=== PATIENT | female | born 1990 | race Caucasian/White ===

== ENCOUNTER 2018-01-19 07:21 | Inpatient (IN) | payer MEDICAID ==
[2018-01-19] MEDS ORDERED: Ondansetron 4 MG/2 ML SDV IV PRN (08:43)
[2018-01-19] MEDS ORDERED: Misoprostol 400 MCG (4 X 100 MCG TAB) RECTAL PRN (08:43)
[2018-01-19] MEDS ORDERED: Tranexamic Acid 1,000 MG in Sodium Chloride 0.9% 100 ML IV PRN (08:43)
[2018-01-19] MEDS ORDERED: Acetaminophen 325 MG Tab PO PRN (08:43)
[2018-01-19] MEDS ORDERED: Methylergonovine 0.2 MG/1 ML Amp IM PRN (08:43)
[2018-01-19] MEDS ORDERED: Lactated Ringers 500 ML IV ONE (08:43)
[2018-01-19] MEDS ORDERED: Lidocaine 1% 30 ML SDV INJECT PRN (08:43)
[2018-01-19] MEDS ORDERED: Carboprost Tromethamine 250 MCG/1 ML Amp IM PRN (08:43)
[2018-01-19] MEDS ORDERED: hydrOXYzine HCl 25 MG Tab PO ONE ×2 (08:48→15:42)
[2018-01-19] MEDS ORDERED: ePHEDrine 50 MG/ML SDV IVPUSH ONE (09:00)
[2018-01-19] MEDS ORDERED: Nalbuphine 10 MG/1 ML Vial IM ONE ×2 (09:53→14:48)
[2018-01-19] MEDS: Lactated Ringers 1,000 ML IV SCH ×4 (13:12→22:00)
[2018-01-19] MEDS: Oxytocin/Normal Saline 30 UNIT/500 ML BAG IV SCH (14:19)
--- NOTE | 2018-01-19 15:12 | HP ---
CHIEF COMPLAINT: Increasing severity and frequency of contractions. HISTORY OF PRESENT ILLNESS: This is a 27-year-old, 1, para 0, currently at 40 weeks 3 days' gestation based on an 18-week ultrasound, who presents to Labor and Delivery reporting regular contractions, increasing in severity. Per patient's mother, patient noted a fluid discharge around 4:30 am this morning. She was brought to the hospital by her mother at 0700 am with increasing severity of contractions. She reports that the pain is in her back and lower stomach, but back hurts more severe than lower stomach. She has had no leakage of fluid or vaginal bleeding. Denies right upper quadrant pain and denies headaches, blurry vision. She has noticed increased swelling in her hands and feet. She denies any recent infections, fevers, or recent drug use. HISTORY: The patient was incarcerated during , had care through the [facility] system. care was transferred to Dr. Hobbs at 35 weeks and 2 days. The mother's blood type O positive. GBS negative, Rubella immune, antibody screen negative. Hepatitis C positive, genotype 1a. HIV nonreactive, Treponema antibodies for syphilis negative. Tdap given 10/25/2017. Influenza vaccine 07/2017. Passed 1 hour GTT. Mother has a history of benzodiazepine, heroin, and tobacco abuse. UDS positive for Cannabinoids. She denies alcohol use during and admits to a few cigarettes per day throughout . Denies other drug use during . PAST MEDICAL HISTORY: 1. Hepatitis C positive. 2. History of substance abuse, heroin and benzodiazepines. 3. Suboxone treated is noted in medical chart. Patient denies that she is taking Suboxone. PAST SURGICAL HISTORY: The patient denies past surgical history. FAMILY HISTORY: Mother is living with no known medical conditions. Father living with no known medical conditions. Maternal grandfather and grandmother . Paternal grandfather and grandmother with no known medical conditions. The patient denies family history of defects, clotting disorders, anesthesia problems, seizures, cystic fibrosis, and bleeding problems. SOCIAL HISTORY: The patient currently living in [place], [place] with her mother who is her source of transportation. She does not have a job in [place]. The patient recently moved to [place] from [place]. The patient has been incarcerated during . CURRENT MEDICATIONS: vitamin. EXPOSURE MEDICATIONS: Suboxone. ALLERGIES: No known allergies. REVIEW OF SYSTEMS: No headaches, blurry vision, chest pain, shortness of breath, fever, or chills. No nausea, vomiting, diarrhea, or constipation. The patient has some mild swelling. OBJECTIVE: Vital Signs: Temperature 98 Fahrenheit, pulse of 91, blood pressure 150/80, respirations 16 on room air. HEENT: Normocephalic and atraumatic. Mucosal membranes are moist. Neck: Supple. No adenopathy. Heart: Regular. S1 and S2 without murmur. Lungs: Clear to auscultation bilaterally. Abdomen: Gravid, nontender. Baseline heart rate 140, with no accelerations. [place] picking up contractions approximately every 1 to 3 minutes. Cervix upon arrival was 1 cm, 90% effaced with bag of water intact. LABORATORY DATA: Hemoglobin of 12.3, platelets of 262, white blood cells of 14.9. AST 32 and ALT of 24. Urine protein 30. Urine bacteria moderate, many urine epithelial cells. Urine drug screen negative for all drugs tested including opioids, barbiturates, and benzodiazepines. Urine Protein:creatinine ratio 0.58 Wet prep negative for yeast, trichomonas. Few clue cells, rare WBC ASSESSMENT: 1. This 27-year-old with 40 weeks 3 days intrauterine based on 19 week ultrasound. 2. 1, para 0. 3. Blood type O positive, Group B streptococcus negative, Rubella immune 4. high-risk in 3rd trimester with incarceration during 5. Hepatitis C positive. 4. Pre-eclampsia, hypertension with Protein:Creatine ratio of 0.58. PLAN: At this time, the patient is receiving Pitocin to augment the labor and at last cervical exam was 1 to 1.5 cm dilated. Planning intrathecal at 4-5 cm dilation. Anticipating vaginal delivery. The patient understands that things may change or arise that she may need alternative delivery such as section. Questions have been answered. History, physical, assessment and plant per Dr. Hobbs. This note is being scribed for Dr. Hobbs. [facility] /[id number] [facility]
[2018-01-19] MEDS ORDERED: fentaNYL 100 MCG/2 ML SDV ONE ×2 (16:58→21:05)
[2018-01-19] MEDS ORDERED: Bupivacaine 0.75%/D5W 2 ML Amp ONE (16:58)
[2018-01-19] MEDS ORDERED: EPINEPHrine 1 MG/ML SDV ONE ×2 (16:59→21:06)
--- NOTE | 2018-01-19 17:52 | PCM.PRNOTE ---
- Free Text/Narrative Note: Requested to provide analgesia to full term patient in severe pain. Upon entering the room, patient is supine in bed complaining of severe abdominal/ pelvic pain and discomfort. Procedure was discussed with patient including adverse outcomes and expectations. Pt consented to analgesia, SAB/IT. Pt placed into a sitting position. Landmarks for SAB/IT were identified and marked. Hands were washed and appropriate PPE was applied. Back was prepped with betadine x3. A sterile, transparent, fenestrated drape was applied. Excess betadine was removed. Using 3 mL of a 1% lidocaine solution, a skin wheel was placed at the L3/L4 interspace. A 24 ga (4 inch) Pencan spinal needle was inserted until positive for CSF. Negative for heme or paresthesias. Injected fentanyl 25 mcg, sufentanil 15 mcg, and 9.75 mg of a 0.75% bupivacaine solution with an epi wash. Pt was placed left lateral position for approximately 20 minutes. There were zero complications or adverse outcomes. Will continue to monitor. Procedure Date & Time: 01/19/18 [id number] (30 min)
[2018-01-19] MEDS ORDERED: Gentamicin 40 MG/ML 2 ML Vial IV SCH ×2 (21:15→21:30)
[2018-01-19] MEDS: Clindamycin Phosphate 900 MG in Sodium Chloride 0.9% 100 ML IV SCH (21:57)
--- NOTE | 2018-01-19 21:57 | PCM.PRNOTE ---
- Free Text/Narrative Note: Requested to provide analgesia to full term patient in severe pain. Upon entering the room, patient is kneeling in bed complaining of severe abdominal/ pelvic pain and discomfort. Procedure was discussed with patient including adverse outcomes and expectations. Pt consented to analgesia, SAB/IT. Pt placed into a sitting position. Landmarks for SAB/IT were identified and marked. Hands were washed and appropriate PPE was applied. Back was prepped with betadine x3. A sterile, transparent, fenestrated drape was applied. Excess betadine was removed. Using 3 mL of a 1% lidocaine solution, a skin wheel was placed at the L3/L4 interspace. A 24 ga (4 inch) Pencan spinal needle was inserted until positive for CSF. Negative for heme or paresthesias. Injected fentanyl 25 mcg, sufentanil 15 mcg, and 9.75 mg of a 0.75% bupivacaine solution with an epi wash. Pt was placed left lateral position for approximately 20 minutes. There were zero complications or adverse outcomes. Will continue to monitor. Procedure Date & Time: 01/19/[id number] (30 min)
[2018-01-20] MEDS ORDERED: Citric Acid/Sodium Citrate Solution 30 ML Cup PO ONE (00:47)
[2018-01-20] MEDS ORDERED: Oxytocin/Normal Saline 60 UNIT/1,000 ML BAG ONE (00:53)
[2018-01-20] MEDS ORDERED: Citric Acid/Sodium Citrate Solution 30 ML Cup ONE (00:57)
[2018-01-20] MEDS: Oxytocin/Normal Saline 30 UNIT/500 ML BAG IV SCH (02:15)
[2018-01-20] MEDS ORDERED: Methylergonovine 0.2 MG/1 ML Amp IM PRN (02:40)
[2018-01-20] MEDS ORDERED: ePHEDrine 50 MG/ML SDV IVPUSH PRN (02:40)
[2018-01-20] MEDS ORDERED: diphenhydrAMINE 50 MG/ML SDV IVPUSH PRN (02:40)
[2018-01-20] MEDS ORDERED: Naloxone 2 MG/2 ML Syringe IVPUSH PRN (02:40)
[2018-01-20] MEDS ORDERED: Acetaminophen/oxyCODONE 325-5 MG Tab PO PRN (02:40)
[2018-01-20] MEDS ORDERED: Lactated Ringers 1,000 ML IV SCH (02:45)
[2018-01-20] MEDS ORDERED: Ketorolac 30 MG/ML SDV IVPUSH SCH (03:00)
--- NOTE | 2018-01-20 03:01 | PCM.PRNOTE ---
- Free Text/Narrative Note: Section Operative Report Date of Surgery: 01/20/2018 Surgeon: Taina Hobbs MD Spindle Maker: MD Opal Haynes MS3 Pre-Operative Diagnosis: Failure to progress in 2nd stage Maternal chorioamnionitis Post-Operative Diagnosis: Same Procedure Performed: Primary low transverse section Anesthesia: General EBL: 700 mL IVF: 1200 mL Drains: Romo catheter with 200 mL of urine output Specimens: None Complications: None apparent Findings: Normal uterus, tubes, and ovaries. Indication and Consent: After pushing for nearly 2 hours, no significant head descent was noted. Patient also developed chorioamnionitis. section was recommended to the patient for wellbeing. The patient understood that the risks of section include, but are not limited to, visceral or vascular injury, infection, blood loss and need for blood transfusion, prolonged hospitalization , and reoperation. The patient stated understanding and desired to proceed. All questions were answered. Procedure in Detail: The patient was taken to the operating room. Spinal anesthesia was administered. Romo catheter and pneumoboots were placed. She was then prepped and draped in routine fashion in dorsal supine position with a left rojo tilt. Patient was receiving Clindamycin and Gentamicin for chorioamnionitis. A Pfannenstiel skin incision was made with a scalpel and carried down to the fascia. The fascia was incised and extended laterally. The rectus musculature was in the midline down to the level of the pubic symphysis. The peritoneum was found to be free of adherent bowel or bladder tissue and entered bluntly. The peritoneal opening was then extended superiorly and inferiorly to the bladder reflection with good visualization of the bladder. The Valentin retractor was placed. Brief intraabdominal survey revealed scant, clear peritoneal fluid and thinned-out lower uterine segment. The lower uterine segment was incised with a scalpel. The amniotic sac was ruptured with an Allis clamp and foul-smelling, brown, meconium-stained fluid was noted. The uterine incision was extended bluntly with lateral and upward traction. The fetus was in vertex position. The head was elevated out of the maternal pelvis with special attention paid to avoid using the uterine incision as a fulcrum. Gentle fundal pressure was applied once the head was brought into the incision. The infant was delivered with minimal difficulty. Bulb suctioning of the infant's nose and mouth was not performed on the operative field. The cord was clamped and cut in standard fashion, and the infant was handed over to the awaiting nursery staff. IV oxytocin was initiated to facilitate uterine contractions. The placenta was delivered intact with manual message of the uterine fundus along with gentle cord traction. The inside of the uterus was gently wiped with a lap sponge to assure complete removal of remaining products of conception. The uterine incision was closed with 0 -Vicryl suture in a running locked fashion. The incision was inspected and hemostasis achieved. The ovaries and tubes were visualized and found to be normal. The uterus, tubes, and ovaries were returned to the abdominal cavity. The blood clots and fluid were wiped out of the abdomen and pelvis with moist laparotomy sponges. The uterine incision was re-inspected along with all other incised surfaces and good hemostasis was confirmed. The Valentin retractor was removed. The peritoneus was then closed using 2-0 Vicyrl. The fascia was then closed with 2-0 looped PDS suture with care not to include any underlying abdominal contents. The skin was closed with arnaldo. Dressing was applied. Sponge and instrument counts were reported as correct times two. Patient tolerated procedure well and was taken to PACU in stable condition. Taina Hobbs MD
--- NOTE | 2018-01-20 03:09 | PCM.DEL ---
L & D Note - General Info Date of Service: 01/20/18 Mother's Due Date: 01/16/18 - Delivery Note Labor: Spontaneous Delivery Outcome: Livebirth Infant Delivery Method: Primary Presentation: Vertex Nuchal Cord: None Anesthesia Type: Spinal, Intrathecal Amniotic Fluid Description: Foul smelling Placenta: Manual Removal, Meconium Stained Cord: 3 Vessels Estimated Blood Loss: 700 [place]: Suctioned, Bulb Syringe, Stimulated, Warmed, [place] Used, Warmer Used Provider: Taina Hobbs Score 1 min: 8 Score 5 min: 8 Delivery Comments (Free Text/Narrative):: Please see procedure note for details. - General Info Date of Service: 01/20/18 - Patient Data Vitals - Most Recent: Last Vital Signs Temp 36.9 C 01/20/18 02:15 Pulse 84 01/20/18 02:55 Resp 19 01/20/18 02:55 BP 141/78 H 01/20/18 02:55 Pulse Ox 98 01/20/18 02:55 Weight - Most Recent: 97.069 kg Lab Results Last 24 Hours: Laboratory Results - last 24 hr 01/19/18 01/19/18 01/19/18 Range/Units 07:21 07:21 07:21 WBC (5.0-10.0) 10^3/uL RBC (4.2-5.4) 10^6/uL Hgb (12.0-16.0) g/dL Hct (37.0-47.0) % MCV (80-100) fL MCH (27.0-34.0) pg MCHC (33.0-35.0) g/dL Plt Count (150-450) 10^3/uL BUN (7-18) mg/dL Creatinine (0.6-1.3) mg/dL Est Cr Clr Drug Dosing mL/min Estimated GFR (MDRD) Uric Acid (2.6-7.2) mg/dL AST (10-42) IU/L ALT (10-60) IU/L Lactate Dehydrogenase (91-180) IU/L Urine Color Yellow (YELLOW) Urine Appearance Slightly cloudy (CLEAR) Urine pH 7.0 (5.0-9.0) Ur Specific [place] 1.020 (1.005-1.030) Urine Protein 30 H (NEGATIVE) Urine Glucose (UA) Negative (NEGATIVE) Urine Ketones Negative (NEGATIVE) Urine Occult Blood Trace-lysed H (NEGATIVE) Urine Nitrite Negative (NEGATIVE) Urine Bilirubin Negative (NEGATIVE) Urine Urobilinogen 0.2 (0.2-1.0) mg/dL Ur Leukocyte Esterase Trace H (NEGATIVE) Urine RBC 5-10 H /HPF Urine WBC 10-20 H (0-5/HPF) /HPF Ur Epithelial Cells Many H /HPF Amorphous Sediment Few (0/HPF) /HPF Urine Bacteria Moderate H (0-FEW/HPF) /HPF Urine Mucus Few H /LPF Ur Random Creatinine 55 mg/dL U Random Total Protein 32 H (0.00-9.9) mg/dL Protein/Creatinin Ratio 0.58 Urine Opiates Screen Negative (NEGATIVE) Ur Oxycodone Screen Negative (NEGATIVE) Urine Methadone Screen Negative (NEGATIVE) Ur Barbiturates Screen Negative (NEGATIVE) U Tricyclic Antidepress Negative (NEGATIVE) Ur Phencyclidine Scrn Negative (NEGATIVE) Ur Amphetamine Screen Negative (NEGATIVE) U Methamphetamines Scrn Negative (NEGATIVE) Urine MDMA Screen Negative (NEGATIVE) U Benzodiazepines Scrn Negative (NEGATIVE) Urine Cocaine Screen Negative (NEGATIVE) U Marijuana (THC) Screen Negative (NEGATIVE) Blood Type Gel Antibody Screen 01/19/18 01/19/18 01/19/18 Range/Units 07:30 07:30 07:30 WBC 14.9 H (5.0-10.0) 10^3/uL RBC 3.73 L (4.2-5.4) 10^6/uL Hgb 12.3 (12.0-16.0) g/dL Hct 35.9 L (37.0-47.0) % MCV 96.2 (80-100) fL MCH 33.0 (27.0-34.0) pg MCHC 34.3 (33.0-35.0) g/dL Plt Count 262 (150-450) 10^3/uL BUN 14 (7-18) mg/dL Creatinine (0.6-1.3) mg/dL Est Cr Clr Drug Dosing mL/min Estimated GFR (MDRD) Uric Acid 5.1 (2.6-7.2) mg/dL AST 32 (10-42) IU/L ALT 24 (10-60) IU/L Lactate Dehydrogenase 157 (91-180) IU/L Urine Color (YELLOW) Urine Appearance (CLEAR) Urine pH (5.0-9.0) Ur Specific [place] (1.005-1.030) Urine Protein (NEGATIVE) Urine Glucose (UA) (NEGATIVE) Urine Ketones (NEGATIVE) Urine Occult Blood (NEGATIVE) Urine Nitrite (NEGATIVE) Urine Bilirubin (NEGATIVE) Urine Urobilinogen (0.2-1.0) mg/dL Ur Leukocyte Esterase (NEGATIVE) Urine RBC /HPF Urine WBC (0-5/HPF) /HPF Ur Epithelial Cells /HPF Amorphous Sediment (0/HPF) /HPF Urine Bacteria (0-FEW/HPF) /HPF Urine Mucus /LPF Ur Random Creatinine mg/dL U Random Total Protein Cancelled (0.00-9.9) mg/dL Protein/Creatinin Ratio Urine Opiates Screen (NEGATIVE) Ur Oxycodone Screen (NEGATIVE) Urine Methadone Screen (NEGATIVE) Ur Barbiturates Screen (NEGATIVE) U Tricyclic Antidepress (NEGATIVE) Ur Phencyclidine Scrn (NEGATIVE) Ur Amphetamine Screen (NEGATIVE) U Methamphetamines Scrn (NEGATIVE) Urine MDMA Screen (NEGATIVE) U Benzodiazepines Scrn (NEGATIVE) Urine Cocaine Screen (NEGATIVE) U Marijuana (THC) Screen (NEGATIVE) Blood Type Gel Antibody Screen 01/19/18 01/19/18 Range/Units 07:30 07:30 WBC (5.0-10.0) 10^3/uL RBC (4.2-5.4) 10^6/uL Hgb (12.0-16.0) g/dL Hct (37.0-47.0) % MCV (80-100) fL MCH (27.0-34.0) pg MCHC (33.0-35.0) g/dL Plt Count (150-450) 10^3/uL BUN (7-18) mg/dL Creatinine 0.7 (0.6-1.3) mg/dL Est Cr Clr Drug Dosing 102.40 mL/min Estimated GFR (MDRD) > 60 Uric Acid (2.6-7.2) mg/dL AST (10-42) IU/L ALT (10-60) IU/L Lactate Dehydrogenase (91-180) IU/L Urine Color (YELLOW) Urine Appearance (CLEAR) Urine pH (5.0-9.0) Ur Specific [place] (1.005-1.030) Urine Protein (NEGATIVE) Urine Glucose (UA) (NEGATIVE) Urine Ketones (NEGATIVE) Urine Occult Blood (NEGATIVE) Urine Nitrite (NEGATIVE) Urine Bilirubin (NEGATIVE) Urine Urobilinogen (0.2-1.0) mg/dL Ur Leukocyte Esterase (NEGATIVE) Urine RBC /HPF Urine WBC (0-5/HPF) /HPF Ur Epithelial Cells /HPF Amorphous Sediment (0/HPF) /HPF Urine Bacteria (0-FEW/HPF) /HPF Urine Mucus /LPF Ur Random Creatinine mg/dL U Random Total Protein (0.00-9.9) mg/dL Protein/Creatinin Ratio Urine Opiates Screen (NEGATIVE) Ur Oxycodone Screen (NEGATIVE) Urine Methadone Screen (NEGATIVE) Ur Barbiturates Screen (NEGATIVE) U Tricyclic Antidepress (NEGATIVE) Ur Phencyclidine Scrn (NEGATIVE) Ur Amphetamine Screen (NEGATIVE) U Methamphetamines Scrn (NEGATIVE) Urine MDMA Screen (NEGATIVE) U Benzodiazepines Scrn (NEGATIVE) Urine Cocaine Screen (NEGATIVE) U Marijuana (THC) Screen (NEGATIVE) Blood Type O POSITIVE Gel Antibody Screen Negative William Results Last 24 Hours: Microbiology 01/19/18 09:15 Wet Prep - Final Vagina Med Orders - Current: Current Medications Acetaminophen (Tylenol) 650 mg PO Q4H PRN PRN Reason: Pain (Mild 1-3) and fever Carboprost Tromethamine (Hemabate Ds) 250 mcg IM ASDIRECTED PRN PRN Reason: HEMORRHAGE Diphenhydramine HCl (Benadryl) 25 mg IVPUSH Q6H PRN PRN Reason: Itching or Nausea Docusate Sodium (Colace) 100 mg PO Q12H PRN PRN Reason: Constipation Ephedrine Sulfate (Ephedrine Sulfate) 5 mg IVPUSH SEECOMMENT PRN PRN Reason: Other Gentamicin Sulfate (Gentamicin) 0 mg IV .PHARMACY TO DOSE MANDY Lactated Ringer's (Ringers, Lactated) 1,000 mls @ 125 mls/hr IV ASDIRECTED MANDY Last Admin: 01/19/18 22:00 Dose: 125 mls/hr Tranexamic Acid 1,000 mg/ (Sodium Chloride) 110 mls @ 660 mls/hr IV ONETIME PRN PRN Reason: Bleeding Oxytocin/Sodium Chloride (Pitocin In Ns 30 Unit/500 Ml) 30 unit in 500 mls @ 2 mls/hr IV TITRATE MANDY; Protocol Last Admin: 01/20/18 02:15 Dose: 125 mls/hr Clindamycin Phosphate 900 mg/ (Sodium Chloride) 106 mls @ 200 mls/hr IV Q8H [facility] Last Admin: 01/19/18 21:57 Dose: 200 mls/hr Gentamicin Sulfate 110 mg/ (Sodium Chloride) 102.75 mls @ 205.5 mls/hr IV Q8H [facility] Lactated Ringer's (Ringers, Lactated) 1,000 mls @ 125 mls/hr IV ASDIRECTED [facility] Gentamicin Sulfate 120 mg/ (Sodium Chloride) 103 mls @ 206 mls/hr IV Q8H [facility] Ibuprofen (Motrin) 800 mg PO Q8H PRN PRN Reason: mild pain or fever Ketorolac Tromethamine (Toradol) 15 mg IVPUSH Q6H [facility] Stop: 01/20/18 15:01 Methylergonovine Maleate (Methergine) 0.2 mg IM ASDIRECTED PRN PRN Reason: Hemorrhage Methylergonovine Maleate (Methergine) 0.2 mg IM ONETIME PRN PRN Reason: Excessive Vaginal Bleeding Misoprostol (Cytotec) 800 mcg RECTAL ASDIRECTED PRN PRN Reason: Hemorrhage Naloxone HCl (Narcan) 0.1 mg IVPUSH ASDIRECTED PRN PRN Reason: Respiratory Depression Ondansetron HCl (Zofran) 4 mg IV Q4H PRN PRN Reason: Nausea/Vomiting Oxycodone/Acetaminophen (Percocet 325-5 Mg) 1 tab PO Q4H PRN PRN Reason: Pain (moderate 4-6) Oxycodone/Acetaminophen (Percocet 325-5 Mg) 2 tab PO Q4H PRN PRN Reason: Pain (moderate 4-6) Simethicone (Simethicone) 160 mg PO QID [facility] Sodium Chloride (Saline Flush) 10 ml FLUSH ASDIRECTED PRN PRN Reason: Keep Vein Open Discontinued Medications Bupivacaine HCl/Dextrose (Marcaine 0.75% Spinal) Confirm Administered Dose 2 ml .ROUTE .STK-MED ONE Stop: 01/19/18 16:59 Last Admin: 01/19/18 17:38 Dose: Not Given Citric Acid/Sodium Citrate (Bicitra Solution) 30 ml PO ONETIME ONE Stop: 01/20/18 00:48 Last Admin: 01/20/18 00:59 Dose: 30 ml Citric Acid/Sodium Citrate (Bicitra Solution) Confirm Administered Dose 30 ml .ROUTE .STK-MED ONE Stop: 01/20/18 00:58 Ephedrine Sulfate (Ephedrine Sulfate) 1 mg IVPUSH ONETIME ONE Stop: 01/19/18 09:01 Epinephrine HCl (Adrenalin) Confirm Administered Dose 1 mg .ROUTE .STK-MED ONE Stop: 01/19/18 17:00 Last Admin: 01/19/18 17:39 Dose: Not Given Epinephrine HCl (Adrenalin) Confirm Administered Dose 1 mg .ROUTE .STK-MED ONE Stop: 01/19/18 21:07 Fentanyl (Sublimaze) Confirm Administered Dose 100 mcg .ROUTE .STK-MED ONE Stop: 01/19/18 16:59 Last Admin: 01/19/18 17:38 Dose: Not Given Fentanyl (Sublimaze) Confirm Administered Dose 100 mcg .ROUTE .STK-MED ONE Stop: 01/19/18 21:06 Gentamicin Sulfate (Gentamicin) 0 mg IV .PHARMACY TO DOSE MANDY Hydroxyzine HCl (Atarax) 50 mg PO ONETIME ONE Stop: 01/19/18 08:49 Last Admin: 01/19/18 09:22 Dose: 50 mg Hydroxyzine HCl (Atarax) 50 mg PO ONETIME ONE Stop: 01/19/18 15:43 Last Admin: 01/19/18 15:47 Dose: 50 mg Lactated Ringer's (Ringers, Lactated) 500 mls @ 999 mls/min IV .BOLUS ONE Stop: 01/19/18 08:44 Last Admin: 01/19/18 08:04 Dose: 999 mls/min Gentamicin Sulfate 140 mg/ (Sodium Chloride) 103.5 mls @ 207 mls/hr IV ONETIME ONE Stop: 01/19/18 22:14 Gentamicin Sulfate 120 mg/ (Sodium Chloride) 103 mls @ 206 mls/hr IV ONETIME ONE Stop: 01/19/18 22:29 Last Admin: 01/19/18 22:39 Dose: 206 mls/hr Oxytocin/Sodium Chloride (Pitocin In Ns 30 Unit/500 Ml) Confirm Administered Dose 60 unit in 1,000 mls @ as directed .ROUTE .STK-MED ONE Stop: 05/11/18 00:54 Lidocaine HCl (Xylocaine-Mpf 1%) 10 ml INJECT ASDIRECTED PRN PRN Reason: Perineal Repair Nalbuphine HCl (Nubain) 20 mg IM ONETIME ONE Stop: 01/19/18 09:54 Last Admin: 01/19/18 09:59 Dose: 20 mg Nalbuphine HCl (Nubain) 20 mg IM ONETIME ONE Stop: 01/19/18 14:49 Last Admin: 01/19/18 15:01 Dose: 20 mg Sufentanil Citrate (Sufenta) Confirm Administered Dose 50 mcg .ROUTE .STK-MED ONE Stop: 01/19/18 17:00 Last Admin: 01/19/18 17:39 Dose: Not Given Sufentanil Citrate (Sufenta) Confirm Administered Dose 50 mcg .ROUTE .STK-MED ONE Stop: 01/19/18 21:07 - Problem List & Annotations (1) care in third trimester SNOMED Code(s): 766291475, 03824370, 82825180, 860906080, 427602346 Code(s): Z34.93 - ENCNTR FOR SUPRVSN OF NORMAL PREG, UNSP, THIRD TRIMESTER Status: Acute Current Visit: Yes (2) Chorioamnionitis, delivered, current hospitalization SNOMED Code(s): 29737397 Code(s): O41.1290 - CHORIOAMNIONITIS, UNSP TRIMESTER, NOT APPLICABLE OR UNSP Status: Acute Current Visit: Yes (3) Drug use affecting in first trimester SNOMED Code(s): 98882608, 23282452, 868245755 Code(s): O99.321 - DRUG USE COMPLICATING , FIRST TRIMESTER Status : Acute Current Visit: Yes (4) Hepatitis C SNOMED Code(s): 03234125 Code(s): B19.20 - UNSPECIFIED VIRAL HEPATITIS C WITHOUT HEPATIC COMA Status : Acute Current Visit: Yes (5) Status post delivery SNOMED Code(s): 012169945, 564524274 Code(s): Z98.891 - HISTORY OF UTERINE SCAR FROM PREVIOUS SURGERY Status: Acute Current Visit: Yes - Problem List Review Problem List Initiated/Reviewed/Updated: Yes - My Orders Last 24 Hours: My Active Orders 01/19/18 07:21 DRUG SCREEN URINE BIORAD [URCHEM] Routine UA W/MICROSCOPIC [URIN] Routine EFM External [ Heart Monitor External] [WOMSER] Routine 01/19/18 08:16 PIH Panel [OM.PC] Routine 01/20/18 00:47 Schedule Procedure [COMM] Per Unit Routine 01/20/18 02:40 Bedrest [RC] ASDIRECTED Communication Order [RC] PER UNIT ROUTINE Communication Order [RC] PER UNIT ROUTINE Communication Order [RC] Per Unit Routine RT Incentive Spirometry [RC] Q2HWA Urinary Catheter Removal [RC] Per Unit Routine Vital Signs [RC] PER UNIT ROUTINE Acetaminophen/oxyCODONE [Percocet 325-5 MG] 1 tab PO Q4H PRN Acetaminophen/oxyCODONE [Percocet 325-5 MG] 2 tab PO Q4H PRN Docusate Sodium [Colace] 100 mg PO Q12H PRN Ibuprofen [Motrin] 800 mg PO Q8H PRN Methylergonovine [Methergine] 0.2 mg IM ONETIME PRN Naloxone [Narcan] 0.1 mg IVPUSH SEECOMMENT PRN diphenhydrAMINE [Benadryl] 25 mg IVPUSH Q6H PRN ePHEDrine [ePHEDrine Sulfate] 5 mg IVPUSH SEECOMMENT PRN Antiembolic Hose [OM.PC] Per Unit Routine Assess Lochia [WOMSER] Per Unit Routine Assess Uterine Involution [WOMSER] Per Unit Routine Breast Pump [WOMSER] Per Unit Routine Sequential Compression Device [OM.PC] Per Unit Routine 01/20/18 02:45 Ketorolac [Toradol] 15 mg IVPUSH Q6H Lactated Ringers @ 125 MLS/HR(1000ml) Lactated Ringers [Ringers, Lactated] 1, 000 ml IV ASDIRECTED 01/20/18 02:46 Intake and Output [RC] Q8H Notify Provider Intake and Out [RC] ASDIRECTED 01/20/18 09:00 Simethicone 160 mg PO QID 01/20/18 Breakfast Nothing Per Oral Diet [DIET] Nothing Per Oral Diet [DIET] 01/20/18 Dinner Nothing Per Oral Diet [DIET] 01/20/18 Lunch Clear Liquid Diet [DIET] Nothing Per Oral Diet [DIET] 01/21/18 02:40 CBC W/O DIFF,HEMOGRAM [HEME] Routine - Assessment Assessment:: 27-year-old, now , status post primary section for failure to progress in the 2nd stage of labor and chorioamnionitis - Plan Plan:: 1. Initiate routine cares 2. Continue IV gentamicin and clindamycin for 24 hours post-delivery 3. Baby transferred to NICU. Mother planning to bottle feed. 4. CBC tomorrow AM. 5. Anticipate discharge 01/23/18. Dr. Saul will assume care later this morning. Taina Hobbs MD
[2018-01-20] MEDS: Clindamycin Phosphate 900 MG in Sodium Chloride 0.9% 100 ML IV SCH ×3 (05:42→20:45)
[2018-01-20] MEDS ORDERED: Gentamicin 110 MG in Sodium Chloride 0.9% 100 ML IV SCH (06:00)
[2018-01-20] MEDS: Lactated Ringers 1,000 ML IV SCH (08:26)
[2018-01-20] MEDS: Ketorolac 30 MG/ML SDV IVPUSH SCH ×3 (09:11→21:24)
[2018-01-20] MEDS: Simethicone 80 MG Tab.Chew PO SCH ×4 (09:11→20:48)
[2018-01-20] MEDS: Docusate Sodium 100 MG Cap PO PRN ×2 (09:11→20:48)
[2018-01-20] MEDS ORDERED: Ketorolac 30 MG/ML SDV IVPUSH ONE (11:04)
[2018-01-20] MEDS ORDERED: Oxytocin/Normal Saline 30 UNIT/500 ML BAG IV ONE (11:04)
[2018-01-20] MEDS ORDERED: Ondansetron 4 MG/2 ML SDV IV ONE (11:04)
[2018-01-20] MEDS ORDERED: Bupivacaine 0.75%/D5W 2 ML Amp ONE (11:04)
[2018-01-20] MEDS ORDERED: Morphine PF 1 MG/ML Amp ONE (11:04)
[2018-01-20] MEDS ORDERED: fentaNYL 100 MCG/2 ML SDV ITHECAL ONE ×2 (11:12→11:23)
[2018-01-20] MEDS ORDERED: EPINEPHrine 1 MG/ML SDV IV ONE (11:12)
[2018-01-20] MEDS ORDERED: EPINEPHrine 1 MG/ML SDV ONE (11:23)
[2018-01-20] MEDS: Sodium Chloride 0.9% 10 ML Syringe FLUSH PRN ×3 (20:44→22:00)
[2018-01-20] MEDS ORDERED: Ibuprofen 800 MG Tab PO PRN (23:00)
[2018-01-21] MEDS ORDERED: Ibuprofen 800 MG Tab PO PRN (03:00)
[2018-01-21] MEDS: Acetaminophen/oxyCODONE 325-5 MG Tab PO PRN ×3 (05:04→12:47)
[2018-01-21] MEDS: Simethicone 80 MG Tab.Chew PO SCH ×2 (09:03→12:47)
[2018-01-21] MEDS: Docusate Sodium 100 MG Cap PO PRN (09:04)
--- NOTE | 2018-01-21 11:35 | DISCH ---
ADMIT DIAGNOSES: 1. A 40 and 3/7 weeks' intrauterine gestation based on 19-week ultrasound. 2. 1, para 0. 3. Blood type O positive, GBS negative, rubella immune. 4. High-risk in third trimester with incarceration during . 5. Hepatitis C positive. 6. Preeclampsia, hypertension with protein creatinine ratio of 0.58. 7. Drug use including heroin affecting in the first trimester. DISCHARGE DIAGNOSES: 1. A 40 and 3/7 weeks' intrauterine gestation based on 19-week ultrasound, delivered via primary low transverse section. 2. 1, para 1. 3. Blood type O positive, GBS negative, rubella immune. 4. High-risk in third trimester with incarceration during . 5. Hepatitis C positive. 6. Preeclampsia, hypertension with protein creatinine ratio of 0.58. 7. Failure to progress in the second stage of labor. 8. Chorioamnionitis. 9. Drug use including heroin affecting in the first trimester. PROCEDURE PERFORMED: Primary low transverse section per Dr. Hobbs. SUMMARY OF HOSPITAL COURSE: The patient was admitted on the above date with the above diagnoses, her labor was actively managed, and she was subsequently found to be complete. After pushing for nearly 2 hours, no significant head descent was noted, and the patient also developed chorioamnionitis. Please see Labor and Delivery progress note for more details. It was decided to proceed to section, and the patient underwent a primary low transverse section with an EBL of 700 mL under spinal anesthesia. Please see procedure note for more details. On postoperative day #1, the date of discharge, the patient and nursing staff had no major concerns. The patient was tolerating a general diet, ambulating without difficulty, urinating without difficulty, passing flatus as well as has had a bowel movement. She feels like her pain is well controlled on current medications. She denies fevers or chills, headaches or blurry vision, lightheadedness or dizziness, shortness of breath or chest pain, nausea or vomiting, sharp abdominal pains, or erythema or tenderness in any extremity. She does note some mild upper extremity and lower extremity edema bilaterally. The patient notes lochia that is mild in amount and continues to improve, and does not have any foul smell. DISCHARGE PHYSICAL EXAMINATION: Vital Signs: Temperature 98.5, heart rate 99, blood pressure 129/71, respiratory rate 16, and oxygen saturation 99% on room air. Heart: Regular rate and rhythm. S1 and S2. Lungs: Clear to auscultation bilaterally with normal respiratory effort. No wheezes, rhonchi, or rales appreciated. Abdomen: Mildly distended, soft, nontender to palpation. The uterus is firm and palpated at the level of the umbilicus with no excessive tenderness by palpation. The incision is covered with a dressing that is clean, dry, and intact with no shadowing. Upon removal of the dressing, the incision is intact without edema, erythema or drainage Extremities: Trace edema in the upper extremities bilaterally, 1+ edema in the lower extremities bilaterally. No erythema or tenderness in any extremity. Skin: Warm, dry, and well perfused. LABORATORY DATA: Drawn on the date of discharge, white blood cells 13.8, hemoglobin 9.1, and platelet count 234. CONDITION ON DISCHARGE: Good. DISCHARGE INSTRUCTIONS: 1. Diet as tolerated. 2. Activity: No lifting more than 20 pounds, no sit-ups, straining, and pelvic rest for the next 6 weeks with immediate return to fertility was discussed with the patient. 3. Reasons to return or go to the emergency room were discussed in detail including but not limited to temperature greater than 100.4 Fahrenheit, red hot tender breast, increasing vaginal bleeding or pain, foul-smelling discharge or increasing pain, drainage or redness around the incision. DISCHARGE MEDICATIONS: 1. [id number] Tylenol as needed for pain. 2. Ibuprofen 800 mg t.i.d. p.o. p.r.n. 3. Iron supplementation 325 b.i.d. x6 weeks. 4. vitamins x6 weeks. 5. Percocet 5/325 one to two q.8 hours p.r.n. #30, no refills. FOLLOWUP: The patient will be scheduled for a followup in 3 days from now on 01/24/2018, for staple removal with Dr. Hobbs. The patient was instructed at that visit she should schedule her 6 weeks' visit. The patient expressed understanding and is in agreement with the above treatment plan, and all of her questions were answered. The history, physical, assessment and plan are per Dr. Saul, and this note is being scribed for Dr. Saul. MODL /[id number]
[2018-01-21] MEDS ORDERED: Ferrous Sulfate 325 MG Tab PO SCH (18:00)
== END 2018-01-21 13:00 | disposition home or self-care (01) | DRG 765 ==
LOC: DL.OBCHECK 07:21 → DL.OB 08:44 → EEVIPCON 01-20 01:41 → OBSVTOIN 01-20 01:41
PROVIDERS: ADMIT Family Medicine; ATTEND Family Medicine
PROC: 00HU33Z Insertion of Infusion Device into Spinal Canal, Percutaneous Approach (ICD-10-PCS; 2018-01-19)
PROC: 3E0R3BZ Introduction of Anesthetic Agent into Spinal Canal, Percutaneous Approach (ICD-10-PCS; 2018-01-19)
PROC: 10D00Z1 Extraction of Products of Conception, Low, Open Approach (ICD-10-PCS; principal; 2018-01-20)
DX: O14.94 Unspecified pre-eclampsia, complicating childbirth (principal); O41.1230 Chorioamnionitis, third trimester, not applicable or unspecified; O98.42 Viral hepatitis complicating childbirth; Z37.0 Single live birth; B19.20 Unspecified viral hepatitis C without hepatic coma; O99.324 Drug use complicating childbirth; O16.4 Unspecified maternal hypertension, complicating childbirth; O63.1 Prolonged second stage (of labor); Z3A.40 40 weeks gestation of pregnancy; F11.10 Opioid abuse, uncomplicated; F13.10 Sedative, hypnotic or anxiolytic abuse, uncomplicated; O99.334 Smoking (tobacco) complicating childbirth; F17.210 Nicotine dependence, cigarettes, uncomplicated; O77.0 Labor and delivery complicated by meconium in amniotic fluid
CPT/HCPCS: 01961; 01967; 36415; 51702; 80305; 81001; 82565; 82570; 83615; 84156; 84450; 84460; 84520; 84550; 85027; 86850; 86900; 86901; 87210; A9270-GY; J0171; J1200; J1580; J1885; J2274; J2300; J2405; J2590; J3010; J7050; J7120; S0077

== ENCOUNTER 2023-10-13 05:27 | Day surgery (SDC) | payer BC ==
[2023-10-13] MEDS ORDERED: Midazolam 1 MG/ML 2 ML SDV ONE (06:10)
[2023-10-13] MEDS ORDERED: fentaNYL 100 MCG/2 ML SDV IV ONE (06:11)
[2023-10-13] MEDS ORDERED: Midazolam 1 MG/ML 2 ML SDV IV ONE (06:11)
[2023-10-13] MEDS ORDERED: fentaNYL 100 MCG/2 ML SDV ONE (06:11)
[2023-10-13] MEDS: Dextrose 5%-0.45% NaCl 1,000 ML IV SCH (06:21)
[2023-10-13] MEDS: fentaNYL 100 MCG/2 ML SDV IV ONE ×2 (06:36→06:37)
[2023-10-13] MEDS: Midazolam 1 MG/ML 2 ML SDV IV ONE ×2 (06:37→06:38)
== END 2023-10-13 08:30 | disposition home or self-care (01) ==
LOC: DL.ENDO 05:27
PROVIDERS: ATTEND Internal Medicine Gastroenterology
DX: B18.2 Chronic viral hepatitis C (principal); F17.210 Nicotine dependence, cigarettes, uncomplicated; Z88.0 Allergy status to penicillin
CPT/HCPCS: 43239; 81025; 87077; J2250; J3010; J7042